=== PATIENT | male | born 2000 | race Caucasian/White ===

== ENCOUNTER 2022-10-03 17:48 | Emergency (ER) | payer BC, OTHER ==
[~2022-10-03] VITALS: Ht 170.2 cm; Wt 49.5 kg
[~2022-10-03 17:48] MED LIST: HYDR-4383 PO
[2022-10-03 18:07] VITALS: BP 119/70
[2022-10-03] MEDS ORDERED: HYDR-3965 PO (19:03)
[2022-10-03] MEDS ORDERED: HYDROcodone/acetaminophen 5mg/325mg tablet PO ONE (19:05)
== END 2022-10-03 19:51 | disposition home or self-care (01) ==
LOC: ER 17:49
DX: S92.512A Displaced fracture of proximal phalanx of left lesser toe(s), initial encounter for closed fracture (principal); W18.40XA Slipping, tripping and stumbling without falling, unspecified, initial encounter; Y93.89 Activity, other specified; Y92.89 Other specified places as the place of occurrence of the external cause; Y99.8 Other external cause status
CPT/HCPCS: 29515; 73660; 99284; L3260